=== PATIENT | female | born 1995 | race Caucasian/White ===

== ENCOUNTER 2019-04-12 18:00 | Emergency (ER) | payer MEDICAID ==
[~2019-04-12] VITALS: Ht 162.6 cm; Wt 86.2 kg
[~2019-04-12 18:00] MED LIST: CEPHALEXIN 500500 M3 PO; CIPRO500 MG PO; DIASTAT2.5 MG RC; FLEXERIL PO; HYDROCODON-ACE1 EACH PO; KEPPRA 500 MG500 M1; MOBIC7.5 MG PO; NAPROSYN500 MG PO; NORCO 5-325 TA1 EACH PO; OSELB75 PO; PROMETHAZINE D480 ML PO; TESSALON PERLE100 MG PO; TOPAMAX100 MG; ZOFRAN ODT4 MG PO; ZOFRAN4 MG PO
[2019-04-12 20:45] VITALS: BP 112/68
== END 2019-04-12 20:48 | disposition home or self-care (01) ==
LOC: M.ERS 18:00
DX: I80.02 Phlebitis and thrombophlebitis of superficial vessels of left lower extremity (principal); F32.9 Major depressive disorder, single episode, unspecified; Z90.2 Acquired absence of lung [part of]

== ENCOUNTER 2019-04-16 15:41 | Emergency (ER) | payer MEDICAID ==
[~2019-04-16] VITALS: Ht 162.6 cm; Wt 98.9 kg
[2019-04-16] MEDS ORDERED: NAPROSYN500 MG PO (18:01)
[2019-04-16] MEDS ORDERED: TYLENOL WITH CO1 TA1 PO (18:01)
[2019-04-16] MEDS ORDERED: PREDNISONE 10 M10 MG PO (18:01)
[2019-04-16 18:14] VITALS: BP 133/72
== END 2019-04-16 18:15 | disposition home or self-care (01) ==
LOC: M.ERS 15:41
DX: I80.02 Phlebitis and thrombophlebitis of superficial vessels of left lower extremity (principal); F32.9 Major depressive disorder, single episode, unspecified; Z98.890 Other specified postprocedural states

== ENCOUNTER 2019-04-21 09:34 | Emergency (ER) | payer MEDICAID ==
[~2019-04-21] VITALS: Ht 162.6 cm; Wt 68.0 kg
[~2019-04-21 09:34] MED LIST changes: +PREDNISONE 10 M10 MG PO; +TYLENOL WITH CO1 TA1 PO
[2019-04-21] MEDS ORDERED: IBUPROFEN 800800 MG PO ×2 (10:12→10:14)
[2019-04-21] MEDS ORDERED: KEFLEX500 M1 PO ×2 (10:12→10:14)
[2019-04-21 10:21] VITALS: BP 129/65
== END 2019-04-21 10:22 | disposition home or self-care (01) ==
LOC: M.ERS 09:34
DX: I80.02 Phlebitis and thrombophlebitis of superficial vessels of left lower extremity (principal)

== ENCOUNTER 2019-07-21 20:54 | Emergency (ER) | payer MEDICAID ==
[~2019-07-21] VITALS: Ht 162.6 cm; Wt 68.0 kg
[~2019-07-21 20:54] MED LIST changes: +IBUPROFEN 800800 MG PO; +KEFLEX500 M1 PO
[2019-07-21] MEDS ORDERED: FOLIC ACID (21:20)
[2019-07-21] MEDS ORDERED: VITAMIN D10000 UNIT PO (21:21)
[2019-07-21 22:03] LABS: CALCIUM 8.2 mg/dL (8.5-10.1); CREATININE 0.8 mg/dL (0.6-1.3)
[2019-07-21] MEDS ORDERED: HYDROCODON-ACE1 EAC8 PO (23:00)
[2019-07-21] MEDS ORDERED: XARELTO15 MG PO (23:00)
[2019-07-21] MEDS ORDERED: BACTRIM DS TAB1 EACH PO (23:00)
[2019-07-21 23:20] VITALS: BP 105/60
== END 2019-07-21 23:20 | disposition home or self-care (01) ==
LOC: M.ERS 20:54
PROVIDERS: Emergency Medicine
DX: I82.812 Embolism and thrombosis of superficial veins of left lower extremity (principal); Z86.718 Personal history of other venous thrombosis and embolism

== ENCOUNTER 2019-08-11 19:45 | Emergency (ER) | payer MEDICAID ==
[~2019-08-11] VITALS: Ht 162.6 cm; Wt 68.0 kg
[~2019-08-11 19:45] MED LIST changes: +BACTRIM DS TAB1 EACH PO; +FOLIC ACID; +HYDROCODON-ACE1 EAC8 PO; +VITAMIN D10000 UNIT PO; +XARELTO15 MG PO
[2019-08-11 20:55] VITALS: BP 125/74
== END 2019-08-11 20:58 | disposition home or self-care (01) ==
LOC: M.ERS 19:45
DX: L25.9 Unspecified contact dermatitis, unspecified cause (principal)

== ENCOUNTER 2019-09-08 15:10 | Emergency (ER) | payer MEDICAID ==
[~2019-09-08] VITALS: Ht 162.6 cm; Wt 99.8 kg
[2019-09-08 16:01] VITALS: BP 138/63
== END 2019-09-08 16:01 | disposition home or self-care (01) ==
LOC: M.ERS 15:10
DX: M79.672 Pain in left foot (principal); Z86.718 Personal history of other venous thrombosis and embolism

== ENCOUNTER 2019-09-26 14:58 | Emergency (ER) | payer MEDICAID ==
[~2019-09-26] VITALS: Ht 162.6 cm; Wt 90.7 kg
[2019-09-26] MEDS ORDERED: FOLIC ACID1 MG PO (16:31)
[2019-09-26 16:37] LABS: ABSOLUTE EOSINOPHILS 0.2 thou/uL (0.0-0.7); ABSOLUTE LYMPHOCYTES 1.9 thou/uL (0.8-5.3); ABSOLUTE MONOCYTES 0.7 thou/uL (0.0-1.2); ABSOLUTE NEUTROPHILS 7.4 thou/uL (1.6-8.1); BASOPHILS 0.3 %; EOSINOPHILS 2.3 %; HEMATOCRIT 38.8 % (37.0-47.0); HEMOGLOBIN 12.9 gm/dL (12.0-15.0); LYMPHOCYTES 18.8 %; MCH 31.5 pg (26.0-34.0); MCHC 33.3 g/dL (28.0-37.0); MCV 94.8 fL (80.0-100.0); MONOCYTES 6.7 %; MPV 7.1 fl. (7.2-11.1); NUCLEATED RBCS 0 /100WBC; PLATELET COUNT* 307 thou/uL (150-400); POLYS 71.9 %; RBC 4.09 mil/uL (4.20-5.00); RDW-CV 12.4 % (10.5-14.5); WBC 10.3 thou/uL (4.0-11.0)
[2019-09-26 16:43] LABS: CALCIUM 8.9 mg/dL (8.5-10.1); CREATININE 0.7 mg/dL (0.6-1.3)
[2019-09-26] MEDS ORDERED: DOXYCYCLINE 10100 MG PO (17:14)
[2019-09-26] MEDS ORDERED: NORCO 5-325 TA1 EAC1 PO (17:14)
[2019-09-26] MEDS ORDERED: IBUPROFEN 800800 M1 PO (17:14)
[2019-09-26 17:30] VITALS: BP 123/71
== END 2019-09-26 17:30 | disposition home or self-care (01) ==
LOC: M.ERS 14:58
PROVIDERS: Nurse Practitioner Family
DX: S80.812A Abrasion, left lower leg, initial encounter (principal); L08.9 Local infection of the skin and subcutaneous tissue, unspecified; Z86.718 Personal history of other venous thrombosis and embolism; V89.2XXA Person injured in unspecified motor-vehicle accident, traffic, initial encounter; Y93.89 Activity, other specified; Y92.89 Other specified places as the place of occurrence of the external cause; Y99.8 Other external cause status

== ENCOUNTER → 2019-10-03 | Outpatient (CLI) | payer MEDICAID ==
[~2019-10-03] MED LIST changes: +DOXYCYCLINE 10100 MG PO; +FOLIC ACID1 MG PO; +IBUPROFEN 800800 M1 PO; +NORCO 5-325 TA1 EAC1 PO
== END ==
LOC: M.WC 08:00
DX: S81.812A Laceration without foreign body, left lower leg, initial encounter (principal); I83.90 Asymptomatic varicose veins of unspecified lower extremity; I89.0 Lymphedema, not elsewhere classified; G40.909 Epilepsy, unspecified, not intractable, without status epilepticus; G43.909 Migraine, unspecified, not intractable, without status migrainosus; E66.9 Obesity, unspecified; K21.9 Gastro-esophageal reflux disease without esophagitis; F41.9 Anxiety disorder, unspecified; V49.9XXA Car occupant (driver) (passenger) injured in unspecified traffic accident, initial encounter; Y93.89 Activity, other specified; Y92.89 Other specified places as the place of occurrence of the external cause; Y99.8 Other external cause status

== ENCOUNTER → 2019-10-10 | Outpatient (CLI) | payer MEDICAID | LOC: M.WC 05:00 | DX: S81.812D Laceration without foreign body, left lower leg, subsequent encounter (principal); G40.909 Epilepsy, unspecified, not intractable, without status epilepticus; G43.909 Migraine, unspecified, not intractable, without status migrainosus; E66.9 Obesity, unspecified; I83.90 Asymptomatic varicose veins of unspecified lower extremity; I89.0 Lymphedema, not elsewhere classified; K21.9 Gastro-esophageal reflux disease without esophagitis; F41.9 Anxiety disorder, unspecified; V29.9XXD Motorcycle rider (driver) (passenger) injured in unspecified traffic accident, subsequent encounter ==

== ENCOUNTER → 2019-10-17 | Outpatient (CLI) | payer MEDICAID | LOC: M.WC 04:33 | DX: S81.812D Laceration without foreign body, left lower leg, subsequent encounter (principal); I89.0 Lymphedema, not elsewhere classified; I83.90 Asymptomatic varicose veins of unspecified lower extremity; E66.9 Obesity, unspecified; G43.909 Migraine, unspecified, not intractable, without status migrainosus; G40.909 Epilepsy, unspecified, not intractable, without status epilepticus; K21.9 Gastro-esophageal reflux disease without esophagitis; F41.9 Anxiety disorder, unspecified; V29.9XXD Motorcycle rider (driver) (passenger) injured in unspecified traffic accident, subsequent encounter ==

== ENCOUNTER → 2019-10-24 | Outpatient (CLI) | payer MEDICAID | LOC: M.WC 04:56 | DX: S81.812D Laceration without foreign body, left lower leg, subsequent encounter (principal); I89.0 Lymphedema, not elsewhere classified; I83.90 Asymptomatic varicose veins of unspecified lower extremity; E66.9 Obesity, unspecified; G40.909 Epilepsy, unspecified, not intractable, without status epilepticus; G43.909 Migraine, unspecified, not intractable, without status migrainosus; K21.9 Gastro-esophageal reflux disease without esophagitis; F41.9 Anxiety disorder, unspecified; Z68.37 Body mass index [BMI] 37.0-37.9, adult; V89.2XXD Person injured in unspecified motor-vehicle accident, traffic, subsequent encounter ==

== ENCOUNTER → 2019-10-31 | Outpatient (CLI) | payer MEDICAID | LOC: M.WC 03:22 | DX: S81.812D Laceration without foreign body, left lower leg, subsequent encounter (principal); I89.0 Lymphedema, not elsewhere classified; I83.90 Asymptomatic varicose veins of unspecified lower extremity; G40.909 Epilepsy, unspecified, not intractable, without status epilepticus; G43.909 Migraine, unspecified, not intractable, without status migrainosus; E66.9 Obesity, unspecified; K21.9 Gastro-esophageal reflux disease without esophagitis; F41.9 Anxiety disorder, unspecified; F84.0 Autistic disorder; Z68.37 Body mass index [BMI] 37.0-37.9, adult; V00-Y99 External causes of morbidity ==

== ENCOUNTER → 2019-11-02 | Outpatient (CLI) | payer MEDICAID | LOC: M.MRI 14:10 | DX: L03.116 Cellulitis of left lower limb (principal); R60.0 Localized edema ==

== ENCOUNTER → 2019-11-07 | Outpatient (CLI) | payer MEDICAID | LOC: M.WC 03:15 | DX: S81.812D Laceration without foreign body, left lower leg, subsequent encounter (principal); I89.0 Lymphedema, not elsewhere classified; I83.90 Asymptomatic varicose veins of unspecified lower extremity; E66.01 Morbid (severe) obesity due to excess calories; G40.909 Epilepsy, unspecified, not intractable, without status epilepticus; G43.909 Migraine, unspecified, not intractable, without status migrainosus; K21.9 Gastro-esophageal reflux disease without esophagitis; F41.9 Anxiety disorder, unspecified; F84.0 Autistic disorder; Z68.37 Body mass index [BMI] 37.0-37.9, adult ==

== ENCOUNTER → 2019-11-14 | Outpatient (CLI) | payer MEDICAID | LOC: M.WC 05:25 | DX: S81.812D Laceration without foreign body, left lower leg, subsequent encounter (principal); I89.0 Lymphedema, not elsewhere classified; I83.90 Asymptomatic varicose veins of unspecified lower extremity; E66.9 Obesity, unspecified; G40.909 Epilepsy, unspecified, not intractable, without status epilepticus; G43.909 Migraine, unspecified, not intractable, without status migrainosus; K21.9 Gastro-esophageal reflux disease without esophagitis; F41.9 Anxiety disorder, unspecified; F84.0 Autistic disorder; V89.2XXD Person injured in unspecified motor-vehicle accident, traffic, subsequent encounter ==

== ENCOUNTER → 2019-11-28 | Outpatient (CLI) | payer MEDICAID | LOC: M.WC 01:40 | DX: S81.812D Laceration without foreign body, left lower leg, subsequent encounter (principal); I89.0 Lymphedema, not elsewhere classified; I83.90 Asymptomatic varicose veins of unspecified lower extremity; E66.9 Obesity, unspecified; G40.909 Epilepsy, unspecified, not intractable, without status epilepticus; G43.909 Migraine, unspecified, not intractable, without status migrainosus; K21.9 Gastro-esophageal reflux disease without esophagitis; F41.9 Anxiety disorder, unspecified; F84.0 Autistic disorder; V49.9XXD Car occupant (driver) (passenger) injured in unspecified traffic accident, subsequent encounter ==

== ENCOUNTER 2020-03-28 20:31 | Emergency (ER) | payer MEDICAID ==
[~2020-03-28] VITALS: Ht 162.6 cm; Wt 79.4 kg
[2020-03-28 20:47] VITALS: BP 146/63
[2020-03-28] MEDS ORDERED: FLUOCINOLONE AC60 GM TOP (21:23)
[2020-03-28] MEDS ORDERED: MEDROLDOSEPACK PO (21:23)
== END 2020-03-28 21:30 | disposition home or self-care (01) ==
LOC: M.ERS 20:31
DX: L25.9 Unspecified contact dermatitis, unspecified cause (principal); Z86.718 Personal history of other venous thrombosis and embolism

== ENCOUNTER 2020-10-16 10:03 | Emergency (ER) | payer MEDICAID ==
[~2020-10-16] VITALS: Ht 162.6 cm; Wt 79.4 kg
[~2020-10-16 10:03] MED LIST changes: +FLUOCINOLONE AC60 GM TOP; +MEDROLDOSEPACK PO
[2020-10-16] MEDS ORDERED: KEFLEX500 M1 PO (10:25)
[2020-10-16 10:36] VITALS: BP 121/70
== END 2020-10-16 10:36 | disposition home or self-care (01) ==
LOC: M.ERS 10:03
DX: L03.116 Cellulitis of left lower limb (principal); F84.0 Autistic disorder; F32.9 Major depressive disorder, single episode, unspecified; Z86.718 Personal history of other venous thrombosis and embolism; Z79.899 Other long term (current) drug therapy

== ENCOUNTER 2020-10-21 07:57 | Emergency (ER) | payer MEDICAID ==
[~2020-10-21] VITALS: Ht 162.6 cm; Wt 86.2 kg
[2020-10-21 09:06] LABS: ABSOLUTE BASOPHILS 0.1 thou/uL (0.0-0.2); ABSOLUTE EOSINOPHILS 0.1 thou/uL (0.0-0.7); ABSOLUTE LYMPHOCYTES 2.4 thou/uL (0.8-5.3); ABSOLUTE MONOCYTES 0.8 thou/uL (0.0-1.2); ABSOLUTE NEUTROPHILS 8.1 thou/uL (1.6-8.1); BASOPHILS 0.5 %; EOSINOPHILS 1.2 %; HEMATOCRIT 40.7 % (37.0-47.0); HEMOGLOBIN 13.7 gm/dL (12.0-15.0); LYMPHOCYTES 20.5 %; MCH 30.8 pg (26.0-34.0); MCHC 33.5 g/dL (28.0-37.0); MCV 91.8 fL (80.0-100.0); MONOCYTES 7.2 %; MPV 6.8 fl. (7.2-11.1); NUCLEATED RBCS 0 /100WBC; PLATELET COUNT* 330 thou/uL (150-400); POLYS 70.6 %; RBC 4.44 mil/uL (4.20-5.00); RDW-CV 12.4 % (10.5-14.5); WBC 11.5 thou/uL (4.0-11.0)
[2020-10-21 09:15] LABS: CREATININE 0.8 mg/dL (0.6-1.3); POTASSIUM 3.6 mmol/L (3.5-5.1)
[2020-10-21 09:19] LABS: ALBUMIN 3.9 g/dL (3.4-5.0); TOTAL BILIRUBIN 0.3 mg/dL (<0.1-1.0); TOTAL PROTEIN 7.8 g/dL (6.4-8.2)
[2020-10-21 10:04] VITALS: BP 108/60
== END 2020-10-21 10:05 | disposition home or self-care (01) ==
LOC: M.ERS 07:57
PROVIDERS: Family Medicine
DX: I80.03 Phlebitis and thrombophlebitis of superficial vessels of lower extremities, bilateral (principal); Z86.718 Personal history of other venous thrombosis and embolism

== ENCOUNTER 2020-11-16 23:10 | Emergency (ER) | payer MEDICAID ==
[~2020-11-16] VITALS: Ht 162.6 cm; Wt 87.1 kg
[2020-11-17] MEDS ORDERED: PHENERGAN 25 MG25 M1 PO (02:52)
[2020-11-17] MEDS ORDERED: HYDROCODON-ACE1 EAC8 PO (02:52)
[2020-11-17 03:11] VITALS: BP 110/70
== END 2020-11-17 03:12 | disposition home or self-care (01) ==
LOC: M.ERS 23:10
DX: F07.81 Postconcussional syndrome (principal); Z86.718 Personal history of other venous thrombosis and embolism

== ENCOUNTER 2021-01-22 11:18 | Emergency (ER) | payer OTHER, MEDICAID ==
[~2021-01-22] VITALS: Ht 162.6 cm; Wt 90.7 kg
[~2021-01-22 11:18] MED LIST changes: +PHENERGAN 25 MG25 M1 PO
[2021-01-22] MEDS ORDERED: KEPPRA1000 MG PO (11:48)
[2021-01-22 12:39] VITALS: BP 125/64
== END 2021-01-22 12:39 | disposition home or self-care (01) ==
LOC: M.ERS 11:18
DX: M79.642 Pain in left hand (principal); R60.9 Edema, unspecified; Z86.718 Personal history of other venous thrombosis and embolism